=== PATIENT | male | born 1965 | race Caucasian/White ===

== ENCOUNTER 2022-08-12 11:23 | Emergency (ER) | payer BC ==
[2022-08-12] MEDS ORDERED: Sodium Chloride 0.9% 10 ML Syringe FLUSH PRN (11:47)
[2022-08-12] MEDS ORDERED: Ketorolac 30 MG/ML SDV IVPUSH ONE (11:47)
[2022-08-12] MEDS ORDERED: Tamsulosin 0.4 MG Cap.ER PO ONE (12:53)
== END 2022-08-12 13:22 | disposition home or self-care (01) ==
LOC: JP.ED 11:23
DX: N13.2 Hydronephrosis with renal and ureteral calculous obstruction (principal); Z90.49 Acquired absence of other specified parts of digestive tract
CPT/HCPCS: 74176; 96374; 99284; A9270; J1885; J3490